=== PATIENT | female | born 1945 | race American Indian/Alaskan Native ===

== ENCOUNTER 2018-06-27 13:03 | Emergency (ER) | payer MEDICARE ==
[2018-06-27] MEDS ORDERED: LIDOCAINE VISCOUS 2% PO ONE (13:39)
[2018-06-27] MEDS ORDERED: TYLENOL PO ONE (13:40)
--- NOTE | 2018-06-27 13:41 | Emergency Department Report ---
ED General Adult HPI - General Chief complaint: Allergic Reaction Stated complaint: DIFFICULTY SWALLOWING Time Seen by Provider: 06/27/18 13:21 Source: patient, RN notes reviewed, old records reviewed Mode of arrival: Ambulatory Limitations: No Limitations - History of Present Illness Initial comments: PMD: Dr BEAVERS This is a 73-year-old female who was not known to this provider previously. The patient presents to the ER with a complaint of neck discomfort, neck numbness, posterior neck discomfort, and chest wall discomfort. Her symptoms started at around 10:30 to 11:00 in the morning. The chest discomfort does not radiate to the back, arms or neck. There is no vomiting, diaphoresis or nausea. She denies DVT, pulmonary embolus risk factors. She also endorses throat numbness, tongue numbness, and frontal sinus headache. There are no radiation, and there is no exacerbating or relieving factors. She is concerned that she might be having allergic reaction. -: Sudden Location: neck, chest Radiation: non-radiation Quality: other Consistency: other Improves with: other Worsens with: other Associated Symptoms: chest pain, headaches, other. denies: confusion, cough, diaphoresis, fever/chills, loss of appetite, malaise, nausea/vomiting, rash, seizure, shortness of breath, syncope, weakness - Related Data Previous Rx's Medication Instructions Recorded Last Taken Type Cyclobenzaprine HCl 10 mg PO QHS #14 tablet 11/01/13 Unknown Rx [Cyclobenzaprine] Naproxen [Naprosyn TAB] 500 mg PO BID #30 tablet 11/01/13 Unknown Rx Omeprazole [Prilosec] 20 mg PO BID #60 cap 11/01/13 Unknown Rx Acetaminophen [Tylenol Arthritis] 650 mg PO Q6HR PRN #30 tablet.er 06/27/18 Unknown Rx Famotidine [Pepcid] 20 mg PO BID #60 tablet 06/27/18 Unknown Rx Allergies Allergy/AdvReac Type Severity Reaction Status Date / Time No Known Allergies Allergy Verified 11/01/13 03:19 ED Review of Systems ROS: Stated complaint: DIFFICULTY SWALLOWING Other details as noted in HPI Constitutional: denies: fever Eyes: denies: eye discharge ENT: denies: epistaxis Cardiovascular: chest pain Gastrointestinal: denies: abdominal pain, vomiting Musculoskeletal: denies: back pain Neurological: headache Psychiatric: anxiety ED Past Medical Hx - Past Medical History Previous Medical History?: Yes Hx Hypertension: Yes - Surgical History Past Surgical History?: Yes Additional Surgical History: partial hysterectomy. x4 - Social History Smoking Status: Never Smoker - Medications Home Medications: Home Medications Medication Instructions Recorded Confirmed Last Taken Type Cyclobenzaprine HCl 10 mg PO QHS #14 tablet 11/01/13 Unknown Rx [Cyclobenzaprine] Naproxen [Naprosyn TAB] 500 mg PO BID #30 tablet 11/01/13 Unknown Rx Omeprazole [Prilosec] 20 mg PO BID #60 cap 11/01/13 Unknown Rx Acetaminophen [Tylenol Arthritis] 650 mg PO Q6HR PRN #30 tablet.er 06/27/18 Unknown Rx Famotidine [Pepcid] 20 mg PO BID #60 tablet 06/27/18 Unknown Rx ED Physical Exam - General Limitations: No Limitations General appearance: alert, in no apparent distress - Head Head exam: Present: atraumatic, normocephalic - Eye Eye exam: Present: normal appearance, EOMI. Absent: nystagmus - ENT ENT exam: Present: normal exam, normal orophraynx, mucous membranes moist, normal external ear exam, other (the patient is speaking in full sentences. There is no stridor. There is no tracheal tenderness. There is no tracheal deviation. There is no elevation of the base of the tongue.) - Neck Neck exam: Present: normal inspection, full ROM. Absent: tenderness, meningismus - Respiratory Respiratory exam: Present: normal lung sounds bilaterally. Absent: respiratory distress, chest wall tenderness, accessory muscle use, decreased breath sounds - Cardiovascular Cardiovascular Exam: Present: normal rhythm, bradycardia, normal heart sounds. Absent: systolic murmur, diastolic murmur, rubs, gallop - GI/Abdominal GI/Abdominal exam: Present: soft, normal bowel sounds. Absent: distended, tenderness, guarding, rebound, rigid, pulsatile mass - Extremities Exam Extremities exam: Present: normal inspection, full ROM, normal capillary refill , other (2+ pulses noted in the bilateral upper, lower extremities. Compartments soft. No long bony tenderness. The pelvis is stable.). Absent: tenderness, pedal edema, joint swelling, calf tenderness - Back Exam Back exam: Present: normal inspection, full ROM. Absent: tenderness, CVA tenderness (R), paraspinal tenderness, vertebral tenderness - Neurological Exam Neurological exam: Present: alert, oriented X3, CN II-XII intact, normal gait, other (Extraocular movements intact. Tongue midline. No facial droop. Facial sensation intact to light touch in the V1, V2, V3 distribution bilaterally. 5 and 5 strength in 4 extremities.. Sensation is intact to light touch in 4 extremities.). Absent: motor sensory deficit - Psychiatric Psychiatric exam: Present: normal affect, normal mood - Skin Skin exam: Present: warm, dry, intact, normal color. Absent: rash ED Course Vital Signs 06/27/18 06/27/18 13:17 14:59 Temperature 98.5 F Pulse Rate 53 L Respiratory 16 16 Rate Blood Pressure 143/65 O2 Sat by Pulse 100 100 Oximetry ED Medical Decision Making - Lab Data Result diagrams: 06/27/18 13:49 06/27/18 13:49 Vital Signs 06/27/18 06/27/18 13:17 14:59 Temperature 98.5 F Pulse Rate 53 L Respiratory 16 16 Rate Blood Pressure 143/65 O2 Sat by Pulse 100 100 Oximetry Labs 06/27/18 06/27/18 06/27/18 13:49 13:49 13:49 WBC 4.9 RBC 4.59 Hgb 14.2 Hct 42.0 MCV 91 MCH 31 MCHC 34 RDW 14.4 Plt Count 216 PT 13.0 INR 0.93 APTT 34.7 Sodium 139 Potassium 4.6 Chloride 102.9 Carbon Dioxide 25 Anion Gap 16 BUN 11 Creatinine 0.6 L Estimated GFR > 60 BUN/Creatinine Ratio 18 Glucose 93 Calcium 9.3 Troponin T < 0.010 06/27/18 06/27/18 13:49 14:57 WBC RBC Hgb Hct MCV MCH MCHC RDW Plt Count PT INR APTT Sodium Potassium Chloride Carbon Dioxide Anion Gap BUN Creatinine Estimated GFR BUN/Creatinine Ratio Glucose Calcium Troponin T < 0.010 < 0.010 - EKG Data -: EKG Interpreted by Nv EKG shows normal: sinus rhythm Rate: bradycardia - EKG Data When compared to previous EKG there are: no significant change Interpretation: no acute changes 06/27/18 16:04 EKG #1 shows sinus bradycardia, 52 bpm, normal axis, premature atrial contraction, QTC within normal limits, left ventricular hypertrophy, not a stemi Unchanged from prior EKG from December 2014. EKG #2 is also unchanged. - Radiology Data Radiology results: report reviewed, image reviewed X-ray the chest is negative for acute disease. X-ray of the neck is negative for acute disease. - Medical Decision Making Differential diagnosis, including but not limited to: GERD, gastritis, reflux, hiatal hernia, hypopharyngeal mass, acute coronary syndrome, pneumonia Assessment and plan: 73-year-old female who complains of tongue numbness, throat numbness, neck/hypopharyngeal discomfort, and chest discomfort, and nonspecific frontal sinus headache. There are no pulmonary embolus or DVT risk factors and the patient is low risk by well's criteria. The patient is protecting her airway and has no stridor and was able to tolerate liquid feeds without difficulty. There is no neck stiffness, and there is no physical exam findings to suggest a space neck infection. Soft tissue neck x-ray was unremarkable. Patient low risk by Perkins's score, BINH score, low risk by well's criteria. Unlikely to have major adverse cardiac event. Based on her history and physical, there does not appear to be an emergent condition at this time, the patient is medically suitable follow-up with outpatient book jacket cover machine operator, and anthropometrist. Critical care attestation.: If time is entered above; I have spent that time in minutes in the direct care of this critically ill patient, excluding procedure time. ED Disposition Clinical Impression: Chest pain, Numbness Disposition: DC-01 TO HOME OR SELFCARE Is pt being admited?: No Does the pt Need Aspirin: No Condition: Stable Instructions: Chest Pain (ED) Additional Instructions: Avoid consumption of heavy, spicy foods. Avoid consumption of Motrin, Naprosyn , ibuprofen, Aleve. Take the medications as needed/direcTed. Follow-up with her book jacket cover machine operator or primary care doctor for chest pain within the next 3-5 days. Follow up with an anthropometrist within the next 7-10 days. Advance diet as tolerated. Dr. Geo Rosas is a local anthropometrist specialist. Return to the ER right away with new pain, worsened pain, migration of pain, projectile vomiting, change in mental status, confusion, inability to tolerate liquid feeds. Referrals: PRIMARY CARE, [Primary Care Provider] - 3-5 Days [facility] [Provider Group] - 3-5 Days [facility] [Provider Group] - 3-5 Days DONALD GALVEZ MD [Staff Physician] - 3-5 Days
[2018-06-27 14:03] LABS: Hemoglobin 14.2 gm/dl (10.1-14.3); Mean Corpuscular HGB Conc 34 % (30-34); Mean Corpuscular Hemoglobin 31 pg (28-32); Mean Corpuscular Volume 91 fl (79-97); Platelet Count 216 K/mm3 (140-440); Red Blood Count 4.59 M/mm3 (3.65-5.03); Red Cell Distribution Width 14.4 % (13.2-15.2)
[2018-06-27 14:21] LABS: INR 0.93 (0.87-1.13)
[2018-06-27 14:22] LABS: Partial Thromboplastin Time 34.7 Sec. (24.2-36.6)
[2018-06-27 14:27] LABS: BUN/Creatinine Ratio 18; Blood Urea Nitrogen 11 mg/dL (7-17); Calcium 9.3 mg/dL (8.4-10.2); Hemolysis Index 30
--- NOTE | 2018-06-27 14:31 | XRay Report ---
AP AND LATERAL SOFT TISSUES OF THE NECK: History: Neck pain. The contour of the upper airway appears within normal limits. The epiglottis is not enlarged. No prevertebral soft tissue swelling is apparent. No mass density or foreign body is evident. Advanced multilevel degenerative disc disease is identified throughout the cervical spine. IMPRESSION: Unremarkable soft tissue neck. Advanced cervical spondylosis.
--- NOTE | 2018-06-27 14:31 | XRay Report ---
ROUTINE CHEST, TWO VIEWS: HISTORY: chest pain. The trachea, heart, mediastinal contour, lung orr and bony thorax are unremarkable. IMPRESSION: Unremarkable chest x-ray.
[2018-06-27] MEDS ORDERED: ALUM-MAG HYDROX-SIMETH 200-200-20MG/5ML PO ONE (15:14)
[2018-06-27] MEDS ORDERED: ALUM-MAG HYDROX-SIMETH 200-200-20MG/5ML ONE (15:17)
[2018-06-27 16:26] VITALS: BP 168/81
== END 2018-06-27 17:32 | disposition home or self-care (01) ==
LOC: ED 13:03
DX: R07.89 Other chest pain (principal); R20.0 Anesthesia of skin; I10 Essential (primary) hypertension; Z90.711 Acquired absence of uterus with remaining cervical stump
CPT/HCPCS: 36415; 70360; 71046; 80048; 84484; 85027; 85610; 85730; 93005; 93010; 99284